=== PATIENT | female | born 2000 | race Two or more races ===

== ENCOUNTER 2021-09-29 20:40 | Emergency (ER) | payer OTHER ==
[~2021-09-29] VITALS: Ht 152.4 cm; Wt 68.0 kg
[2021-09-29] MEDS ORDERED: ACETAMINOPHEN 325 MG TABLET ONE (21:28)
[2021-09-29] MEDS: ACETAMINOPHEN 325 MG TABLET PO ONE (21:29)
[2021-09-29 22:47] VITALS: BP 116/78
--- NOTE | 2021-09-29 22:48 | NUR ---
Patient discharged to home in stable condition. Written and verbal after care instructions given. Patient verbalizes understanding of instruction.
== END 2021-09-29 22:48 | disposition home or self-care (01) ==
LOC: ER 20:55
DX: S43.52XA Sprain of left acromioclavicular joint, initial encounter (principal); G44.319 Acute post-traumatic headache, not intractable; V43.52XA Car driver injured in collision with other type car in traffic accident, initial encounter; Y93.89 Activity, other specified; Y92.89 Other specified places as the place of occurrence of the external cause; Y99.8 Other external cause status
CPT/HCPCS: 70450-TC; 73030-TC; 84703-TC